=== PATIENT | male | born 1965 | race Caucasian/White ===

== ENCOUNTER → 2024-03-03 09:50 | Outpatient (REF) | payer MEDICARE, SELFPAY | LOC: RCS 09:50 | PROVIDERS: ATTENDING PHYSICIAN Nurse Practitioner Family | DX: I10 Essential (primary) hypertension (principal); Z79.899 Other long term (current) drug therapy | CPT/HCPCS: 93017 ==

== ENCOUNTER → 2024-05-09 09:37 | Outpatient (REF) | payer MEDICARE, SELFPAY | LOC: WDC 09:37 | PROVIDERS: ATTENDING PHYSICIAN Nurse Practitioner Family | DX: N63.12 Unspecified lump in the right breast, upper inner quadrant (principal) | CPT/HCPCS: 76642; 77062; 77066 ==

== ENCOUNTER → 2024-07-06 10:01 | Outpatient (REF) | payer OTHER, SELFPAY | LOC: MRI 3T 10:01 | PROVIDERS: ATTENDING PHYSICIAN Physician Assistant Medical; FAMILY PHYSICIAN Nurse Practitioner Family | DX: M54.16 Radiculopathy, lumbar region (principal) | CPT/HCPCS: 72148 ==

== ENCOUNTER → 2025-08-14 11:42 | Outpatient (REF) | payer MEDICARE, SELFPAY | LOC: RAD 11:42 | PROVIDERS: ATTENDING PHYSICIAN Internal Medicine | DX: M17.11 Unilateral primary osteoarthritis, right knee (principal) | CPT/HCPCS: 73562; 73565 ==